=== PATIENT | male | born 1975 | race Caucasian/White ===

== ENCOUNTER → 2017-02-03 | Outpatient (CLI) | payer BC, OTHER ==
--- NOTE | ~2017-02-03 | SLE ---
[facility] [address] [place] [address] POLYSOMNOGRAPHY STUDY Name: CRYSTAL RUBIO Room #: REG [facility].#: [id number] Admission: 02/03/17 Attend Phys: Selene Peña MD Discharge: Date of : 73 Report #: [id number] THIS REPORT FOR: //name// CC: Julia Evans MD The patient with history of sleep apnea, currently on a CPAP unit from the [employer] auto CPAP between 4 and 20 cm, by report he snored while wearing his auto unit. He brought in his own mask. He has leak in the lateral position. Positive snoring. Daytime somnolence. Usually goes to bed between 9:30 and 5:30 a.m. COMMENTS: No significant arrhythmia noted. BASELINE PORTION: Total recording time 126 minutes. Central apnea 1, obstructive apnea 20, hypopnea 104. Apnea-hypopnea index of 80 events per sleep hour. Non-REM 80, REM 72 events per sleep hour. Respiratory effort related arousal 0.6 events per sleep hour. Max heart rate 87. Periodic limb movement with arousal index of 11.6 events per sleep hour. Low oxygen saturation 86%, spending 7% of recording time less than 90%. CPAP TITRATION: Titrated at 5, 7, 9, 11, 12 and 14 cm water pressure. At 14 cm water pressure, the patient was seen for 66 minutes of which 15 minutes was in REM sleep. Apnea-hypopnea index was 0 events per sleep hour, low sat of 93%. IMPRESSION: 1. Obstructive sleep apnea/hypopnea, G47.33. 2. Periodic limb movement with arousal index of 11.6 events per sleep hour. However, drops down to 4.7 events for the time on CPAP and some of these limb movements may be related to respiratory events. 3. CPAP improves the patient's apnea-hypopnea index, snoring and desaturation. 4. No significant arrhythmia noted. SUGGESTIONS: 1. In addition to specific therapy, the patient should be cautioned regarding driving or operating dangerous machinery unless fully alert. The patient should be cautioned regarding the use of respiratory depressants. 2. Oral appliance or appropriate surgery may be considered with appropriate followup. 3. The usual sleep apnea suggestions are recommended. 4. An auto titrating CPAP between 8 and 16 cm water pressure is initially recommended. During our study, a [employer] Tequ[employer] view medium mask was used with heated humidity. 5. If signs and symptoms not improved with therapy, further evaluation is [facility] [address] [place] [address] POLYSOMNOGRAPHY STUDY Name: CRYSTAL RUBIO Room #: REG [facility]#: [id number] Admission: 02/03/17 Attend Phys: Selene Peña MD Discharge: Date of : 73 Report #: [id number] recommended. Please do not hesitate to contact me if I may be of further assistance. <ELECTRONICALLY SIGNED> By: Selene Peña MD 02/09/17 1813 180 43 Selene Peña MD /yolande
== END ==
LOC: SLEEPLAB 13:09
DX: G47.33 Obstructive sleep apnea (adult) (pediatric) (principal)